=== PATIENT | male | born 1960 | race Two or more races ===

== ENCOUNTER 2019-01-15 11:31 | Emergency (ER) | payer MEDICARE ==
[2019-01-15] MEDS ORDERED: Bupivacaine 0.25% 10 ML SDV INJECT ONE (11:50)
[2019-01-15] MEDS ORDERED: Diphtheria,Pertussis(Acell),Tetanus Vaccine 0.5 ML SDV IM ONE (11:50)
--- NOTE | 2019-01-15 11:50 | EDM.PDOC ---
ED HPI GENERAL MEDICAL PROBLEM - General Chief Complaint: General Stated Complaint: LEFT HAND FINGER INJURY [id number] Time Seen by Provider: 01/15/19 11:48 Source of Information: Reports: Patient History Limitations: Reports: No Limitations - History of Present Illness INITIAL COMMENTS - FREE TEXT/NARRATIVE: patient comes emergency department today with concerns of a fishhook to the left hand. Just prior to arrival the patient was fishing when he got a fishhook stuck in his left fifth finger on the medial aspect of the distal phalanges of the left fifth finger. There is no active bleeding. This happened just prior to arrival. Patient did trim the fishhook very close to the skin for some reason. He is unsure when his last tetanus shot was. - Related Data Allergies Allergy/AdvReac Type Severity Reaction Status Date / Time No Known Allergies Allergy Verified 01/15/19 11:48 Home Meds: Home Meds . [Unable to Verify Home Med List] 01/15/19 [History] ED ROS GENERAL - Review of Systems Review Of Systems: ROS reveals no pertinent complaints other than HPI. ED EXAM, GENERAL - Physical Exam Exam: See Below Exam Limited By: No Limitations General Appearance: Alert, WD/WN, No Apparent Distress Peripheral Pulses: 2+: Radial (L), Radial (R) Extremities: No: Normal Inspection (On the left 5th finger distal phalange medial side there is a metal fish hook appearing stuck into the finger and is very little exposed. DOes not penetrate through the skin. CMS intact. ) Skin Exam: Warm, Dry, Intact Course - Vital Signs Last Recorded V/S: Last Vital Signs Temp 36.0 C 01/15/19 11:38 Pulse 85 01/15/19 11:38 Resp 16 01/15/19 11:38 BP 129/71 01/15/19 11:38 Pulse Ox 97 01/15/19 11:38 - Orders/Labs/Meds Orders: Active Orders 24 hr Category Date Time Status Vaccines to be Administered [RC] PER UNIT ROUTINE Care 01/15/19 11:50 Active Meds: Medications Discontinued Medications Generic Name Dose Route Start Last Admin Trade Name Freq PRN Reason Stop Dose Admin Bupivacaine HCl 10 ml 01/15/19 11:50 01/15/19 12:02 Sensorcaine-Mpf 0.25% INJECT 01/15/19 11:51 10 ml ONETIME ONE Administration Diphtheria/Tetanus/Acell Pertussis 0.5 ml 01/15/19 11:50 01/15/19 12:01 Adacel IM 01/15/19 11:51 0.5 ml .ONCE ONE Administration Lidocaine HCl 30 ml 01/15/19 11:51 01/15/19 12:02 Xylocaine-Mpf 1% INJECT 01/15/19 11:52 30 ml ONETIME ONE Administration - Re-Assessments/Exams Free Text/Narrative Re-Assessment/Exam: 01/15/19 12:21 patient's tetanus status was updated as he was unaware of when his last tetanus shot was. Risk and benefits of a digital block was explained to the patient is comfortable with this plan and his questions were answered. 1% lidocaine without epinephrine and 0.25% bupivacaine without epinephrine was injected at the medial and lateral aspect of the left fifthfinger. After good anesthesia was verified and obtained with the use of a pliers I was able to remove the fishhook manually very easily. Small amount of bleeding which was controlled by direct pressure. The finger was soaked in chlorhexidine and sterile water. We will place him on antibiotics for prophylaxis. He is comfortable with the discharge plan and his questions are answered. Departure - Departure Time of Disposition: 12:18 Disposition: Home, Self-Care 01 Clinical Impression: Foreign body of finger - Discharge Information Forms: ED Department Discharge Additional Instructions: Tylenol and or Ibuprofen as needed for pain. Soak the finger in warm water [facility] soap and Epsom salt 4 times a day until healed. Keep covered with bacitracin and bandage until healed. Cephalexin, 1 capsule 4 times a day for the next 5 days to prevent infection. RX given to the patient. Return to the ED if new or worsening symptoms. Follow up with PCP in the next 4-6 days if not improving sooner if worse. - My Orders Last 24 Hours: My Active Orders 01/15/19 11:50 Vaccines to be Administered [RC] PER UNIT ROUTINE - Assessment/Plan Last 24 Hours: My Active Orders 01/15/19 11:50 Vaccines to be Administered [RC] PER UNIT ROUTINE Assessment:: Fish hook removal to the left 5th finger. digital block to the left fifth finger. Plan: Tylenol and or Ibuprofen as needed for pain. Soak the finger in warm water [facility] soap and Epsom salt 4 times a day until healed. Keep covered with bacitracin and bandage until healed. Cephalexin, 1 capsule 4 times a day for the next 5 days to prevent infection. RX given to the patient. Return to the ED if new or worsening symptoms. Follow up with PCP in the next 4-6 days if not improving sooner if worse.
[2019-01-15] MEDS ORDERED: Lidocaine 1% 30 ML SDV INJECT ONE (11:51)
[2019-01-15] MEDS ORDERED: Bacitracin Oint 1 GM U/D Packet TOP ONE (12:27)
== END 2019-01-15 12:53 | disposition home or self-care (01) ==
LOC: DL.ED 11:31
DX: S60.457A Superficial foreign body of left little finger, initial encounter (principal); Z23 Encounter for immunization; W45.8XXA Other foreign body or object entering through skin, initial encounter
CPT/HCPCS: 64450; 90471; 90715; 99282; J2001; J3490; 99283